=== PATIENT | female | born 1965 | race African-American/Black ===

== ENCOUNTER 2016-12-19 09:49 | Emergency (ER) | payer MEDICAID ==
[~2016-12-19] VITALS: Ht 170.2 cm; Wt 154.2 kg
[~2016-12-19 09:49] MED LIST: ALBUTEROL SULF8.5 GM INH; ALBUTEROL2.5 MG/3 M HHN; AUGMENTIN TAB875 MG PO; AZITHROMYCIN250 MG ORAL; CYCLOBENZAPRINE10 MG ORAL; IBUPROFEN200 M2 ORAL; LORATADINE10 M1 PO; PHENERGAN6.25 MG/5 PO; PREDNISONE20 MG ORAL
[2016-12-19] MEDS ORDERED: KEFLEX500 MG ORAL (11:11)
[2016-12-19 11:21] VITALS: BP 149/84
--- NOTE | 2016-12-19 15:50 | Emergency Room Report ---
History of Present Illness General Chief Complaint: Pain Source: Patient, Medical Record Present Illness HPI 51-year-old female presents ED complaining of leg pain times one month. Patient has bruising and swelling in different spots on the leg bilaterally. Pain is mild, 2/10, nonradiating. Patient is concerned because they are not resolving. Patient states she did have some insect bites on her legs before. Denies fevers or chills. Denies chest pain shortness of breath. No aggravating relieving factors. Denies any other associated symptoms Allergies: Coded Allergies: No Known Allergies (Unverified , 05/21/15) Patient History Past Medical History: DM, asthma Past Surgical History: none Pertinent Family History: none Social History: Denies: smoking, alcohol use, drug use Last Menstrual Period: menopause Now: No Immunizations: UTD Reviewed Nursing Documentation: PMH: Agreed, PSxH: Agreed Nursing Documentation-PMH Past Medical History: No History, Except For Hx Asthma: Yes Hx Diabetes: Yes - pre-diabetic Review of Systems All Other Systems: negative except mentioned in HPI Physical Exam Vital Signs Date Time Temp Pulse Resp B/P (MAP) Pulse Ox O2 Delivery O2 Flow Rate FiO2 12/19/16 09:56 97.5 60 18 162/92 98 Room Air Sp02 EP Interpretation: reviewed, normal General Appearance: no apparent distress, alert, GCS 15, non-toxic, obese Head: normocephalic, atraumatic Eyes: bilateral eye normal inspection, bilateral eye PERRL ENT: hearing grossly normal, normal pharynx, no angioedema, normal voice Neck: full range of motion, supple/symm/no masses Respiratory: chest non-tender, lungs clear, normal breath sounds, speaking full sentences Cardiovascular #1: regular rate, rhythm, no edema Cardiovascular #2: 2+ carotid (R), 2+ carotid (L), 2+ radial (R), 2+ radial (L) , 2+ dorsalis pedis (R), 2+ dorsalis pedis (L) Gastrointestinal: normal bowel sounds, non tender, soft, non-distended, no guarding, no rebound Rectal: deferred Genitourinary: normal inspection, no CVA tenderness Musculoskeletal: back normal, gait/station normal, normal range of motion, non- tender Neurologic: alert, oriented x3, responsive, motor strength/tone normal, sensory intact, speech normal Psychiatric: judgement/insight normal, memory normal, mood/affect normal, no suicidal/homicidal ideation Reflexes: 3+ bicep (R), 3+ bicep (L), 3+ tricep (R), 3+ tricep (L), 3+ knee (R) , 3+ knee (L) Skin: other - bruising with underlying nodularity bilateral legs Lymphatic: no adenopathy Medical Decision Making Diagnostic Impression: Primary Impression: Leg pain, bilateral ER Course Hospital Course 51-year-old female presents ED with bruising and pain to bilateral legs Differential diagnoses include: Fracture, dislocation, sprain, contusion Clinical course Patient placed on stretcher. After initial history and physical, I ordered doppler US bilateral LEs no evidence of DVT. Discoloration likely related to bruising, mild to minimal trauma. Possibly related to previous insect bite infections Diagnosis - bilateral leg pain Stable and discharged to home with prescription for Keflex. apply ice, keep elevated. weight bear as tolerated. Followup with PMD. Return to ED if symptoms recur or worsen CT/MRI/US Diagnostic Results CT/MRI/US Diagnostic Results : Imaging Test Ordered: Doppler US Impression no DVT bilaterally Last Vital Signs Date Time Temp Pulse Resp B/P (MAP) Pulse Ox O2 Delivery O2 Flow Rate FiO2 12/19/16 11:21 97.5 65 16 149/84 96 Room Air Status: improved Disposition: HOME, SELF-CARE Condition: Stable Scripts Cephalexin* (KEFLEX*) 500 Mg Capsule 500 MG ORAL Q6H, #28 CAP 0 Refills Prov: LORIE SMITH M.D. 12/19/16 Referrals: [facility],REF (PCP) NOT CHOSEN STEPHIE/,REFERRING Patient Instructions: Insect Bite, [id number] LORIE SMITH M.D. Dec 19, 2016 15:50
--- NOTE | 2016-12-20 23:30 | Diagnostic Imaging Report ---
APPROVED REPORT CPT Code: 86746 Present Symptoms Lower Extremity Pain: Bilateral Risk Factors Obesity BILATERAL: Imaging reveals a patent deep venous system bilaterally. There is no evidence of thrombus within the femoral, popliteal or tibial segments. The greater saphenous veins are also within normal limits. Doppler indicates normal spontaneous flow within these segments.
== END 2016-12-19 11:22 | disposition home or self-care (01) ==
LOC: EMR 10:11
DX: M79.605 Pain in left leg (principal); M79.604 Pain in right leg; E11.9 Type 2 diabetes mellitus without complications; J45.909 Unspecified asthma, uncomplicated
CPT/HCPCS: 93970; 99284

== ENCOUNTER 2018-05-12 15:55 | Emergency (ER) | payer MEDICAID ==
[~2018-05-12] VITALS: Ht 170.2 cm; Wt 142.9 kg
[~2018-05-12 15:55] MED LIST changes: +KEFLEX500 MG ORAL
[2018-05-12 16:13] VITALS: BP 132/85
--- NOTE | 2018-05-12 16:13 | NUR ---
ED Nurse Note: Pt came in due to scanty vaginal bleeding, dark brown and crampy x 1 week. Pt states she had her last period in 2011. Denies foul smell or swelling but with slight itching. Pt is AAO x4, ambulatory with non labored breathing.
[2018-05-12] MEDS ORDERED: Ketorolac 30mg Inj IV ONE (16:45)
--- NOTE | 2018-05-12 17:12 | NUR ---
ED Nurse Note: Blood and urine collected and sent.
[2018-05-12 17:15] LABS: BASOPHILS % (AUTO) 1.8 % (0.0-2.0); EOSINOPHILS % (AUTO) 4.5 % (0.0-3.0); HEMATOCRIT 39.5 % (37.0-47.0); HEMOGLOBIN 13.1 G/DL (12.0-16.0); MEAN CORPUSCULAR VOLUME 79 FL (80-99); MONOCYTES % (AUTO) 6.6 % (1.0-10.0); NEUTROPHILS % (AUTO) 52.2 % (45.0-75.0); PLATELET COUNT 308 K/UL (150-450); RED BLOOD COUNT 5.02 M/UL (4.20-5.40); RED CELL DISTRIBUTION WIDTH 13.9 % (11.6-14.8)
[2018-05-12 17:15] LABS: APPEARANCE,URINE CLOUDY; BILIRUBIN, URINE NEGATIVE (NEGATIVE); COLOR,URINE AMBER; GLUCOSE, URINE (UA) NEGATIVE (NEGATIVE); KETONES,URINE 1+ (NEGATIVE); LEUKOCYTE ESTERASE ,URINE 1+ (NEGATIVE); NITRITE,URINE NEGATIVE (NEGATIVE); PH,URINE 5 (4.5-8.0); PROTEIN,URINE 3+ (NEGATIVE); UROBILINOGEN,URINE 1 MG/DL (0.0-1.0)
[2018-05-12 17:27] LABS: ANION GAP 6 mmol/L (5-15); BLOOD UREA NITROGEN 7 mg/dL (7-18); CALCIUM 9.3 MG/DL (8.5-10.1); CARBON DIOXIDE 30 MMOL/L (21-32); CHLORIDE 105 MMOL/L (98-107); CREATININE 0.7 MG/DL (0.55-1.30); POTASSIUM 3.5 MMOL/L (3.5-5.1); SODIUM 141 MMOL/L (136-145)
[2018-05-12 17:32] LABS: ALANINE AMINOTRANSFERASE 15 U/L (12-78); ALBUMIN 3.2 G/DL (3.4-5.0); ALBUMIN/GLOBULIN RATIO 0.7 (1.0-2.7); ALKALINE PHOSPHATASE 87 U/L (46-116); ASPARTATE AMINO TRANSFERASE 17 U/L (15-37); BILIRUBIN,TOTAL 0.4 MG/DL (0.2-1.0)
--- NOTE | 2018-05-12 17:49 | Emergency Room Report ---
History of Present Illness General Chief Complaint: Vaginal Source: Patient Present Illness HPI 52-year-old female patient presents the ER complaining of vaginal spotting for the past several days. Reports suprapubic discomfort during this time. Denies sharp pain. Reports able to pass gas. Denies diarrhea or pain with defecation. Denies dysuria. Reports using one pad a day. Reports last menstrual period was in 2011. Denies recent sexual activity for several years. Denies vaginal discharge. Denies passage of tissue. Denies fever, chest pain , shortness of breath, abdominal pain, flank pain, vomiting. Denies syncope or dizziness. Denies other aggravating or relieving factors. States his been taking Tylenol at home for relief of symptoms. Allergies: Coded Allergies: No Known Allergies (Unverified , 05/21/15) Patient History Past Medical History: see triage record Last Menstrual Period: 2011 Now: No Reviewed Nursing Documentation: PMH: Agreed; PSxH: Agreed Nursing Documentation-PMH Past Medical History: No History, Except For Hx Asthma: Yes - bronchitis Hx Diabetes: Yes - pre-diabetic Review of Systems All Other Systems: negative except mentioned in HPI Physical Exam Vital Signs Date Time Temp Pulse Resp B/P (MAP) Pulse Ox O2 Delivery O2 Flow Rate FiO2 05/12/18 16:03 97.9 65 20 126/94 97 Room Air Sp02 EP Interpretation: reviewed, normal General Appearance: well appearing, no apparent distress, alert, GCS 15, non- toxic Head: normocephalic, atraumatic Eyes: bilateral eye normal inspection, bilateral eye PERRL ENT: hearing grossly normal, normal pharynx, no angioedema, normal voice, uvula midline, moist mucus membranes Neck: full range of motion Respiratory: lungs clear, normal breath sounds, no rhonchi, no respiratory distress, no accessory muscle use, no wheezing, speaking full sentences Cardiovascular #1: regular rate, rhythm, no edema Gastrointestinal: non tender, soft, no mass, non-distended, no guarding, no rebound Genitourinary: no CVA tenderness Musculoskeletal: back normal, digits/nails normal, gait/station normal, normal range of motion, non-tender Neurologic: alert, oriented x3, responsive, motor strength/tone normal, sensory intact Psychiatric: mood/affect normal Skin: no rash Lymphatic: no adenopathy Medical Decision Making PA Attestation Dr. Murrieta is my supervising Physician whom patient management has been discussed with. Diagnostic Impression: Primary Impression: Thickened endometrium Additional Impression: Vaginal spotting ER Course Pt presents to ED c/o vaginal spotting x 1 week. DDX considered but are not limited to malignancy, UTI, septic , fibroids , dysfunctional uterine bleeding, STI, ovarian torsion, anemia. Negative Rovsing, no fever, low suspicion for appendicitis, does not require CT at this time. VITAL SIGNS are WNL, patient is afebrile Ordered CBC, CMP, Type and Screen, UA, UCG,IV NS and pelvic US. ER COURSE: CBC and CMP unremarkable, no elevation in WBC, no anemia, LFTs and elect lites within normal limits, lipase not elevated UA results elevated RBCs, likely due to spotting, negative nitrites, multiple epithelial cells, likely contaminated sample, patient asymptomatic, low suspicion for UTI, does not require treatment antibiotics at this time. Rh antibody negative Blood type B positive Results discussed with patient. Pelvus US shows Normal size of the uterus without myometrial mass. Endometrium measures 1.2 cm in thickness which is within normal limits if the patient is premenopausal but thickened if the patient is postmenopausal. Correlate clinically. There is internal flow within the endometrium and as such a polyp, endometrial hyperplasia, or much less likely cancer cannot be entirely excluded. The ovaries are not seen. No free fluid. Discuss results with the patient. Provided patient with copy of results. Instructed patient to followup with PCP and discuss results of report with patient, discuss need for further treatment and referral. Advised patient follow-up with [facility] specialist for endometrial biopsy. Provided contact information for [facility] specialist. Patient resting comfortably, in no acute distress, nontoxic appearing. Patient reports pain symptoms resolved since onset. ER precautions given DISCHARGE: -Rx provided for Tylenol for pain At this time pt. is stable for d/c to home. At this time patient is resting comfortably, in no acute distress, nontoxic appearing, smiling and talking without difficulty. Will provide printed patient care instructions, and any necessary prescriptions. Patient instructed to follow with OBGYN for further treatment and referral as needed. Care plan and follow up instructions have been discussed with the patient prior to discharge. Patient reports understanding and agreement to treatment plan. Patient questions asked and answered. ER precautions given, patient instructed to return to ER immediately for any new or worsening of symptoms. - Please note that this Emergency Department Report was dictated using [employer] technology software, occasionally this can lead to erroneous entry secondary to interpretation by the dictation equipment. Labs Test 05/12/18 16:05 05/12/18 16:45 White Blood Count 5.0 K/UL (4.8-10.8) Red Blood Count 5.02 M/UL (4.20-5.40) Hemoglobin 13.1 G/DL (12.0-16.0) Hematocrit 39.5 % (37.0-47.0) Mean Corpuscular Volume 79 FL (80-99) Mean Corpuscular Hemoglobin 26.2 PG (27.0-31.0) Mean Corpuscular Hemoglobin Concent 33.3 G/DL (32.0-36.0) Red Cell Distribution Width 13.9 % (11.6-14.8) Platelet Count 308 K/UL (150-450) Mean Platelet Volume 6.6 FL (6.5-10.1) Neutrophils (%) (Auto) 52.2 % (45.0-75.0) Lymphocytes (%) (Auto) 35.0 % (20.0-45.0) Monocytes (%) (Auto) 6.6 % (1.0-10.0) Eosinophils (%) (Auto) 4.5 % (0.0-3.0) Basophils (%) (Auto) 1.8 % (0.0-2.0) Sodium Level 141 MMOL/L (136-145) Potassium Level 3.5 MMOL/L (3.5-5.1) Chloride Level 105 MMOL/L (98-107) Carbon Dioxide Level 30 MMOL/L (21-32) Anion Gap 6 mmol/L (5-15) Blood Urea Nitrogen 7 mg/dL (7-18) Creatinine 0.7 MG/DL (0.55-1.30) Estimat Glomerular Filtration Rate > 60 mL/min (>60) Glucose Level 83 MG/DL (74-106) Calcium Level 9.3 MG/DL (8.5-10.1) Total Bilirubin 0.4 MG/DL (0.2-1.0) Aspartate Amino Transf (AST/SGOT) 17 U/L (15-37) Alanine Aminotransferase (ALT/SGPT) 15 U/L (12-78) Alkaline Phosphatase 87 U/L (46-116) Total Protein 7.8 G/DL (6.4-8.2) Albumin 3.2 G/DL (3.4-5.0) Globulin 4.6 g/dL Albumin/Globulin Ratio 0.7 (1.0-2.7) Lipase 98 U/L (73-393) Urine Color [place] Urine Appearance Cloudy Urine pH 5 (4.5-8.0) Urine Specific [place] 1.025 (1.005-1.035) Urine Protein 3+ (NEGATIVE) Urine Glucose (UA) Negative (NEGATIVE) Urine Ketones 1+ (NEGATIVE) Urine Blood 5+ (NEGATIVE) Urine Nitrite Negative (NEGATIVE) Urine Bilirubin Negative (NEGATIVE) Urine Ictotest Negative (NEGATIVE) Urine Urobilinogen 1 MG/DL (0.0-1.0) Urine Leukocyte Esterase 1+ (NEGATIVE) Urine RBC 30-40 /HPF (0 - 2) Urine WBC 2-4 /HPF (0 - 2) Urine Squamous Epithelial Cells Many /LPF (NONE/OCC) Urine Bacteria Few /HPF (NONE) Urine Mucus Moderate /LPF (NONE/OCC) Urine HCG, Qualitative Negative (NEGATIVE) CT/MRI/US Diagnostic Results CT/MRI/US Diagnostic Results : Imaging Test Ordered: Pelvic US Impression Normal size of the uterus without myometrial mass. Endometrium measures 1.2 cm in thickness which is within normal limits if the patient is premenopausal but thickened if the patient is postmenopausal. Correlate clinically. There is internal flow within the endometrium and as such a polyp, endometrial hyperplasia, or much less likely cancer cannot be entirely excluded. The ovaries are not seen. No free fluid. Last Vital Signs Date Time Temp Pulse Resp B/P (MAP) Pulse Ox O2 Delivery O2 Flow Rate FiO2 05/12/18 16:03 97.9 65 20 126/94 97 Room Air Status: improved Disposition: HOME, SELF-CARE Condition: Stable Scripts Acetaminophen* (TYLENOL EXTRA STRENGTH*) 500 Mg Tablet 500 MG ORAL Q8H PRN for Prn Headache/Temp > 101, #30 TAB 0 Refills Prov: Roberto Geller 05/12/18 Patient Instructions: Abdominal Pain, Adult, Abnormal Uterine Bleeding, Easy-to -Read, Endometrial Biopsy Additional Instructions: Followup with OBGYN in 1-2 days. Discuss need for endometrial biopsy. Take medications as directed. Patient questions asked and answered. ER precautions given, patient instructed to return to ER immediately for any new or worsening of symptoms including but not limited to chest pain, SOB, intractable vomiting, profuse vaginal bleeding, abdominal pain. Blood type B positive Roberto Geller May 12, 2018 17:49
[2018-05-12 18:48] VITALS: BP 116/63
--- NOTE | 2018-05-12 19:07 | NUR ---
ED Nurse Note: US at the bed side.
--- NOTE | 2018-05-12 19:08 | NUR ---
HAND-OFF: Report given to Lawrence Pineda RN.
[2018-05-12 20:15] VITALS: BP 116/63
--- NOTE | 2018-05-12 20:15 | NUR ---
ER DISCHARGE NOTE: Patient is cleared to be discharged per ERMD, pt is aox4, on room air, with stable vital signs. pt was given dc and prescription instructions, pt was able to verbalize understanding, pt id band and iv site removed without complications. pt is able to ambulate with steady gait. pt took all belongings.
[2018-05-12] MEDS ORDERED: TYLENOL EXTRA500 MG ORAL (20:16)
--- NOTE | 2018-05-13 10:18 | Diagnostic Imaging Report ---
Indication: Abdominal and pelvic pain, vaginal bleeding Technique: Transabdominal and transvaginal images Comparison: none Findings: Uterus measures 10.3 cm length by 5 cm AP. Endometrium measures 12 mm thick. No myometrial abnormality. Neither ovary could be visualized. No gross adnexal mass Impression: 12 mm thick endometrium, thickened if patient is postmenopausal. Recommend gynecological consultation. Nonvisualized ovaries. No gross adnexal mass This agrees with the preliminary interpretation provided overnight by [facility] teleradiology service.
== END 2018-05-12 20:15 | disposition home or self-care (01) ==
LOC: EMR 16:30
DX: R93.89 Abnormal findings on diagnostic imaging of other specified body structures (principal)
CPT/HCPCS: 36415; 76830; 76856; 80053; 81003; 81025; 83690; 85025; 86850; 86900; 86901; 96361; 96374; 99284; J1885

== ENCOUNTER 2018-10-26 19:07 | Emergency (ER) | payer MEDICAID ==
[~2018-10-26] VITALS: Ht 170.2 cm; Wt 145.1 kg
[~2018-10-26 19:07] MED LIST changes: +TYLENOL EXTRA500 MG ORAL
--- NOTE | 2018-10-26 19:16 | NUR ---
ED Nurse Note: Patient presents with complaints of ground level fall this morning around 0730. Patient reports hitting eye on table and extreme lower back pain.
[2018-10-26 19:18] VITALS: BP 134/89
[2018-10-26] MEDS ORDERED: traMADol 50mg tab ORAL ONE (19:45)
--- NOTE | 2018-10-26 19:45 | Emergency Room Report ---
History of Present Illness General Chief Complaint: Multiple Trauma/Fall Source: Patient Present Illness HPI 53-year-old female presents to the emergency department status post mechanical trip and fall this morning. Patient reports 8 out of 10 severity low back pain as well as pain, swelling and tenderness to the right eyebrow/right upper eyelid. Patient reports that when she fell she tripped over something and she also hit her eyebrow on the corner of the table. She denies loss of consciousness. Denies midline neck pain. Patient denies taking blood thinning medications. Denies eye redness, loss of vision, floaters, flashing lights, diplopia/blurry vision, Increased tearing or pain with eye movements. Denies numbness tingling or loss of sensation or gross motor movements of the extremities, incontinence of bowel or bladder. Denies CP, Palpitations, LOC, AMS , dizziness, Changes in Vision, weakness or a sudden severe headache. She reports any movement exacerbates her low back pain. Pt. states LBP is her causing her the most pain. She reports sustaining a small open wound on the right eye brow as well. Allergies: Coded Allergies: No Known Allergies (Unverified , 05/21/15) Patient History Past Medical History: see triage record Past Surgical History: none Last Menstrual Period: n/a Reviewed Nursing Documentation: PMH: Agreed; PSxH: Agreed Nursing Documentation-PMH Past Medical History: No History, Except For Hx Asthma: Yes - bronchitis Hx Diabetes: Yes - pre-diabetic Review of Systems All Other Systems: negative except mentioned in HPI Physical Exam Vital Signs Date Time Temp Pulse Resp B/P (MAP) Pulse Ox O2 Delivery O2 Flow Rate FiO2 10/26/18 19:09 98.1 82 18 134/89 (104) 98 Room Air Sp02 EP Interpretation: reviewed, normal General Appearance: alert, GCS 15, non-toxic, moderate distress Head: normocephalic, other - hematoma of the right upper eyelid and right eyebrow. swelling noted. Eyes: bilateral eye normal inspection, bilateral eye PERRL, bilateral eye EOMI , bilateral eye other - hematoma of the right upper eyelid and right eyebrow. swelling noted. small 0.2cm superficial non-bleeding laceration to the right upper eyelid. ENT: hearing grossly normal, normal voice Neck: full range of motion, no bony tend Respiratory: chest non-tender, lungs clear, normal breath sounds, no respiratory distress, no wheezing, speaking full sentences Cardiovascular #1: regular rate, rhythm Cardiovascular #2: 2+ dorsalis pedis (R), 2+ dorsalis pedis (L) - post. tib Musculoskeletal: back normal, gait/station normal, normal range of motion, tender - Moderate tenderness to palpation to paraspinal muscles of the lower back with midline tenderness. ROM limited due to pain. Neurologic: alert, oriented x3, responsive, motor strength/tone normal, sensory intact, normal gait, speech normal, grossly normal Psychiatric: judgement/insight normal Skin: laceration - small 0.2cm superficial non-bleeding laceration to the right upper eyelid., other - hematoma of the right upper eyelid. Medical Decision Making PA Attestation Dr. Alfaro is my supervising Physician whom patient management has been discussed with. Diagnostic Impression: Primary Impression: Facial contusion Qualified Codes: S00.83XA - Contusion of other part of head, initial encounter Additional Impressions: Superficial laceration of face Back pain Qualified Codes: M54.5 - Low back pain ER Course 53-year-old female presents to the emergency department status post mechanical trip and fall this morning. Patient reports 8 out of 10 severity low back pain as well as pain, swelling and tenderness to the right eyebrow/right upper eyelid. Patient reports that when she fell she tripped over something and she also hit her eyebrow on the corner of the table. She denies loss of consciousness. Denies midline neck pain. Patient denies taking blood thinning medications. Denies eye redness, loss of vision, floaters, flashing lights, diplopia/blurry vision, Increased tearing or pain with eye movements. Denies numbness tingling or loss of sensation or gross motor movements of the extremities, incontinence of bowel or bladder. Denies CP, Palpitations, LOC, AMS , dizziness, Changes in Vision, weakness or a sudden severe headache. She reports any movement exacerbates her low back pain. Pt. states LBP is her causing her the most pain. She reports sustaining a small open wound on the right eye brow as well. Ddx considered: epidural abscess, fracture, sprain/strain, meningitis, spinal chord injury, sciatica, cauda equina, orbital fx, laceration, just to name a few. Vital signs reviewed and are WNL during ED visit. No saddle anesthesia noted, Pt. denies incontinence Neurovascular is intact- pt. drove her self to ED and ambulated in. ROM is limited due to pain Moderate tenderness to palpation to paraspinal muscles of the lower back with midline tenderness. ORDERS: -CT Facial Bones, CT L-Spine without contrast: INTERVENTIONS: -Tramadol PO -Neosporin applied to superficial lac on right upper lid/brow. -Toradol IM -Lidoderm TP -Tylenol 1g DISCHARGE: At this time pt. is stable for d/c to home. Will provide printed patient care instructions, and any necessary prescriptions. Care plan and follow up instructions have been discussed with the patient prior to discharge. CT/MRI/US Diagnostic Results CT/MRI/US Diagnostic Results #1: Imaging Test Ordered: CT Facial Bones No Contrast Impression "no Acute facial fractures" per official radiology report- Please see report for specific details. CT/MRI/US Diagnostic Results #2: Imaging Test Ordered: CT L-Spine no contrast. Impression " No acute fracture or subluxation. 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 Colonic diverticulosis." Per official radiology report- Please see report for specific details. Last Vital Signs Date Time Temp Pulse Resp B/P (MAP) Pulse Ox O2 Delivery O2 Flow Rate FiO2 10/26/18 19:18 82 18 Room Air 10/26/18 19:18 98.1 134/89 98 Disposition: HOME, SELF-CARE Condition: Stable Referrals: NOT CHOSEN [facility]/MD,REFERRING (PCP) Patient Instructions: Back Pain, Adult, Facial or Scalp Contusion, [id number] Additional Instructions: Take medications as directed. Follow up with an your PCP or an [facility] in 3-5 days, even if your symptoms have resolved. If symptoms persist MRI may be required at the discretion of your PCP or Ortho Specialist. --Please review list of primary care clinics, if you do not already have a primary care provider who can give you an Orthopedic Referral. Return sooner to ED if new symptoms occur, or current symptoms become worse. Do not drink alcohol, drive, or operate heavy machinery while taking [place] as this may cause drowsiness. - Please note that this Emergency Department Report was dictated using [employer] technology software, occasionally this can lead to erroneous entry secondary to interpretation by the dictation equipment. Wilma Almanza Oct 26, 2018 19:45
[2018-10-26] MEDS ORDERED: Acetaminophen 500mg (ES) tab ORAL ONE (21:00)
[2018-10-26] MEDS ORDERED: Neosporin Oint Ud Pkt TOPIC ONE (21:00)
--- NOTE | 2018-10-26 21:02 | Diagnostic Imaging Report ---
EXAM: CT Lumbar Spine Without Intravenous Contrast CLINICAL HISTORY: PAIN TECHNIQUE: Axial computed tomography images of the lumbar spine without intravenous contrast. CTDI is 76-old mGy and DLP is 2152 mGy-cm. One or more of the following dose reduction techniques were used: automated exposure control, adjustment of the mA and/or kV according to patient size, use of iterative reconstruction technique. COMPARISON: No relevant prior studies available. FINDINGS: Vertebrae: Mild L3-4, moderate L4-5 and severe right L5-S1 facet arthrosis. No acute fracture. Discs/spinal canal/neural foramina: No spinal canal stenosis. Soft tissues: Colonic diverticulosis. IMPRESSION: 1. No acute fracture or subluxation. 2. 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 3. Colonic diverticulosis.
[2018-10-26] MEDS ORDERED: Ketorolac 30mg Inj IM ONE (21:15)
--- NOTE | 2018-10-26 21:15 | Diagnostic Imaging Report ---
EXAM: CT Head Without Intravenous Contrast CT Maxillofacial Without Intravenous Contrast CLINICAL HISTORY: PAIN TECHNIQUE: Axial computed tomography images of the head/brain and face without intravenous contrast. CTDI is 28 mGy and DLP is 568 mGy-cm. One or more of the following dose reduction techniques were used: automated exposure control, adjustment of the mA and/or kV according to patient size, use of iterative reconstruction technique. COMPARISON: No relevant prior studies available. FINDINGS: Brain: Unremarkable. No hemorrhage. No significant white matter disease. No edema. Ventricles: Unremarkable. No ventriculomegaly. Bones/joints: No acute fracture. Soft tissues: Unremarkable. Sinuses: Unremarkable. No acute sinusitis. Mastoid air cells: Unremarkable. No mastoid effusion. Orbits: Unremarkable. IMPRESSION: No acute facial fracture.
[2018-10-26] MEDS ORDERED: CYCLOBENZAPRINE10 MG ORAL (21:22)
[2018-10-26] MEDS ORDERED: BACITRACIN-P28.35 GM TP (21:22)
[2018-10-26] MEDS ORDERED: IBUPROFEN600 MG ORAL (21:22)
[2018-10-26 21:30] VITALS: BP 134/89
--- NOTE | 2018-10-26 21:30 | NUR ---
ER DISCHARGE NOTE: Patient is cleared to be discharged per ERMD, pt is aox4, on room air, with stable vital signs. pt was given dc and prescription instructions, pt was able to verbalize understanding, pt id band removed without complications. pt is able to ambulate with steady gait. pt took all belongings.
== END 2018-10-26 21:37 | disposition home or self-care (01) ==
LOC: EMR 19:29
DX: M54.5 Low back pain (principal); S01.111A Laceration without foreign body of right eyelid and periocular area, initial encounter; R73.03 Prediabetes; W01.0XXA Fall on same level from slipping, tripping and stumbling without subsequent striking against object, initial encounter; Y92.9 Unspecified place or not applicable
CPT/HCPCS: 70486; 72131; 96372; 99284; J1885

== ENCOUNTER 2020-03-01 09:55 | Emergency (ER) | payer MEDICAID ==
[~2020-03-01] VITALS: Ht 170.2 cm; Wt 147.0 kg
[~2020-03-01 09:55] MED LIST changes: +BACITRACIN-P28.35 GM TP; +IBUPROFEN600 MG ORAL
[2020-03-01] MEDS ORDERED: dexAMETHasone 10mg/ml Inj IV ONE ×2 (10:13→10:15)
--- NOTE | 2020-03-01 10:13 | Emergency Room Report ---
History of Present Illness General Chief Complaint: Chest Pain Source: Patient Present Illness HPI 54-year-old female history of 30 pack years of smoking hypertension, presents with cough fatigue chest tightness exacerbated with coughing alleviating factors not coughing severity is moderate, intermittent. Patient reports this feels similar to her bronchitis in the past Allergies: Coded Allergies: No Known Allergies (Unverified , 05/21/15) COVID-19 Screening Contact w/high risk pt: No Experienced COVID-19 symptoms?: Yes COVID-19 Testing performed [employer]: Yes COVID-19 Screening: Negative COVID-19 COVID-19 Testing Source: 1 week ago Patient History Past Medical History: see triage record Reviewed Nursing Documentation: PMH: Agreed; PSxH: Agreed Nursing Documentation-PMH Past Medical History: No History, Except For Hx Asthma: Yes - bronchitis Hx Diabetes: Yes Review of Systems All Other Systems: negative except mentioned in HPI Physical Exam Vital Signs Date Time Temp Pulse Resp B/P (MAP) Pulse Ox O2 Delivery O2 Flow Rate FiO2 03/01/20 09:59 98.1 68 16 113/64 (80) 95 Room Air Sp02 EP Interpretation: reviewed, normal General Appearance: well appearing, no apparent distress, alert Head: normocephalic, atraumatic Eyes: bilateral eye PERRL, bilateral eye EOMI ENT: uvula midline, moist mucus membranes Neck: supple, thyroid normal, supple/symm/no masses Respiratory: no respiratory distress, no retraction, no accessory muscle use, decreased breath sounds - Bilaterally poor air movement Cardiovascular #1: normal peripheral pulses, regular rate, rhythm, no edema, no gallop, no murmur Gastrointestinal: non tender, soft, no guarding, no rebound Musculoskeletal: normal inspection Neurologic: alert, oriented x3 Psychiatric: mood/affect normal Skin: no rash, warm/dry Medical Decision Making Diagnostic Impression: Primary Impression: Bronchitis Additional Impression: COPD exacerbation ER Course 54-year-old female presents with cough, congestion, chest pain with coughing, reduced breath sounds bilaterally consistent with COPD exacerbation patient improved with steroid administration, Combivent Chest x-ray negative doubt ACS at this time Patient improved significantly s/p steroids and duonebs Reeval 11:45am patient with improvement in aeration. Dispo home w/ return precautions Chest X-Ray Diagnostic Results Chest X-Ray Diagnostic Results : Chest X-Ray Ordered: Yes # of Views/Limited/Complete: 1 View Indication: Shortness of Breath EP Interpretation: Yes Interpretation: no consolidation, no effusion, no pneumothorax, no acute cardiopulmonary disease Impression: No acute disease Electronically Signed by: Gonsalo Mccormick MD Last Vital Signs Date Time Temp Pulse Resp B/P (MAP) Pulse Ox O2 Delivery O2 Flow Rate FiO2 03/01/20 09:59 98.1 68 16 113/64 (80) 95 Room Air Disposition: HOME, SELF-CARE Condition: Stable Referrals: [facility]. [facility] Patient Instructions: Chronic Obstructive Pulmonary Disease Exacerbation, [id number] Additional Instructions: The patient was provided with discharge instructions, notified to follow-up with a primary care doctor and or specialist in the next 24-48 hours, and to return to the ED if they have worsening of their symptoms. Please note that this report is being documented using DRAGON technology. This can lead to erroneous entry secondary to incorrect interpretation by the dictating instrument. Gonsalo Mccormick MD Mar 01, 2020 10:13
[2020-03-01 10:15] VITALS: BP 113/64
--- NOTE | 2020-03-01 10:20 | NUR ---
ED Nurse Note: Pt came in to ER from home d/t chest discomfort that has been going on for a couple of days. Pt is AOx4, calm and cooperative to care, VSS, satting at 98% on RA, afebrile on triage. Per pt, she was tested negative for covid last week. Denies any other covid-related symptoms. Pt was placed on bed.
--- NOTE | 2020-03-01 10:30 | NUR ---
ED Nurse Note: pt verbalized relief from chest discomfort.
--- NOTE | 2020-03-01 10:40 | NUR ---
ED Nurse Note: rapid covid sent to lab
--- NOTE | 2020-03-01 11:18 | Diagnostic Imaging Report ---
Indication: Cough Technique: One view of the chest Comparison: 06/09/2014 Findings: The heart is enlarged. This is a new finding. The lungs pleural spaces are clear. The aorta is tortuous. Impression: Cardiomegaly. No acute process
--- NOTE | 2020-03-01 11:40 | NUR ---
ED Nurse Note: combivent inhaler 4 puffs may be given per ermd. noted by rn. administered, pt verbalzied relief
[2020-03-01 11:59] VITALS: BP 123/70
--- NOTE | 2020-03-01 11:59 | NUR ---
ER DISCHARGE NOTE: Patient is cleared to be discharged per ERMD, pt is aox4, on room air, with stable vital signs. pt was given dc instructions, pt was able to verbalize understanding, pt id band removed without complications. pt is able to ambulate with steady gait. pt took all belongings.
== END 2020-03-01 11:59 | disposition home or self-care (01) ==
LOC: EMR 10:34
DX: J44.1 Chronic obstructive pulmonary disease with (acute) exacerbation (principal); R53.83 Other fatigue; Z20.828 Contact with and (suspected) exposure to other viral communicable diseases; R05 Cough; R07.89 Other chest pain; E11.9 Type 2 diabetes mellitus without complications; Z87.891 Personal history of nicotine dependence; I10 Essential (primary) hypertension
CPT/HCPCS: 71045; 96374; U0002; Z7502; 99284